=== PATIENT | female | born 1955 ===

== ENCOUNTER → 2019-01-14 | Outpatient (CLI) | payer OTHER ==
[~2019-01-14] MED LIST: NITROGLYCERIN AEROSOL (4.9 GM)
[2019-01-14] MEDS: IOHEXOL 100 ML (10:55)
[2019-01-14] MEDS: SOD CHLORIDE 0.9% 100 ML (10:55)
== END | disposition home or self-care (01) ==
LOC: C/S 09:47
DX: R07.9 Chest pain, unspecified (principal)
CPT/HCPCS: 75571; 75571-59; 75574